=== PATIENT | male | born 1965 | race Caucasian/White ===

== ENCOUNTER 2025-05-05 09:05 | Outpatient (REF) | payer OTHER, SELFPAY ==
[2025-05-05 16:47] LABS: ALT 39 U/L (16-63); AST 23 U/L (15-37); Albumin 3.9 g/dL (3.4-5.0); Alkaline Phosphatase 68 U/L (46-116); Anion Gap 6.4 mmol/L (3-11); BUN 7 mg/dL (7-18); Bilirubin, Total 0.5 mg/dL (0.2-1.0); CO2 31.6 mmol/L (21.0-32.0); CREATININE 0.7 mg/dL (0.70-1.30); Calcium 9.1 mg/dL (8.5-10.1); Chloride 104 mmol/L (98-107); Estimated GFR 106.14 (mL/min/1.73m2); Glucose 88 mg/dL (74-106); LDL CHOLESTEROL 62 mg/dL (<100); Potassium 4.6 mmol/L (3.5-5.1); Sodium 142 mmol/L (136-145); Total Protein 6.7 g/dL (6.4-8.2)
== END 2025-05-05 09:06 | disposition home or self-care (01) ==
LOC: NCHCN 09:05
PROVIDERS: Visit Provider Family Medicine
DX: E78.5 Hyperlipidemia, unspecified (principal); K70.9 Alcoholic liver disease, unspecified
CPT/HCPCS: 80053; 83721

== ENCOUNTER 2025-07-27 08:18 | Outpatient (CLI) | payer OTHER, SELFPAY ==
[2025-07-27 08:45] LABS: ALT 29 U/L (16-63); AST 17 U/L (15-37); Albumin 3.6 g/dL (3.4-5.0); Alkaline Phosphatase 67 U/L (46-116); Anion Gap 7.6 mmol/L (3-11); BUN 7 mg/dL (7-18); Bilirubin, Total 0.4 mg/dL (0.2-1.0); CO2 31.4 mmol/L (21.0-32.0); Calcium 9.1 mg/dL (8.5-10.1); Chloride 104 mmol/L (98-107); Estimated GFR 110.51 (mL/min/1.73m2); Glucose 92 mg/dL (74-106); Potassium 4.2 mmol/L (3.5-5.1); Sodium 143 mmol/L (136-145); Total Protein 7.0 g/dL (6.4-8.2)
[2025-07-27] MEDS: Normal Saline - Diluent 50 ML VIAL IJ (09:05)
[2025-07-27] MEDS: Normal Saline Flush 10 ML SYR IVP (09:05)
[2025-07-27] MEDS: Omnipaque 350 MG/ML 100 ML BTL IJ (09:06)
--- NOTE | 2025-07-27 09:14 | DI.CT_ITS ---
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 TECHNIQUE: Multi planar reconstructions were performed. CONTRAST MATERIAL: Omnipaque 350; 70 cc FINDINGS: CHEST: LUNGS: Again noted are postsurgical/probable post VATS changes in the right lung. There appears to be some mild increasing infiltrate in the medial aspect of the remaining right upper lobe, slightly more so than previous. There are no significant focal findings in the right middle lobe nor in the right lower lobe and is no pleural effusion. No new finding in the right mainstem bronchus. In the opposite-left lung there are no significant focal infiltrates nor nodules and no pleural effusion.. No findings in the right mainstem bronchus. No findings in trachea. MEDIASTINUM: There is no hilar nor mediastinal adenopathy. Visualized thyroid unremarkable. CARDIAC: Heart size is normal. There is no pericardial effusion.Caliber of the ascending thoracic aorta is upper normal. No evidence of dissection. VISUALIZED UPPER ABDOMEN:There are no significant adrenal masses. Cholelithiasis noted. OSSEOUS: No significant osseous lesions.No fractures.. IMPRESSION: 1. Compared to the most recent outside CT scan of 12/28/2024 there is subtle increased infiltrate in the medial aspect of the right upper lobe. This is subtle. No other infiltrates and no pleural effusions. No distinct pulmonary nodules evident. 2. No intrathoracic adenopathy evident. RADIATION DOSE DELIVERED: 136.56mGy.cm Total DLP DATA REPOSITORY: All CT scans at this facility are submitted to the National Radiology Data Registry (NRDR) Dose Index Registry (DIR) with the [employer] ([employer]). RADIATION OPTIMIZATION: All CT scans at this facility use at least one of these dose optimization techniques: automated exposure control; mA and/or kV adjustment per patient size (includes targeted exams where dose is matched to clinical indication); or iterative reconstruction.
== END 2025-07-27 08:38 ==
LOC: DI 08:18
PROVIDERS: PCP Family Medicine; Visit Provider Internal Medicine Medical Oncology
DX: C34.11 Malignant neoplasm of upper lobe, right bronchus or lung (principal)
CPT/HCPCS: 80053; 71260; J3490

== ENCOUNTER 2025-07-29 12:00 | Day surgery (SDC) | payer OTHER, SELFPAY ==
--- NOTE | 2025-07-29 11:05 | W.ANESPRE ---
General Info Date of Service Date Performed: 07/29/25 Height: 5 ft 11 in Weight: 74.843 kg Body Mass Index (BMI): 23.0 Surgical Procedure: Operation Date: 07/29/25 13:05 Proposed Procedure Side Surgeon jose cruz Garcia MD Meds Allergies and Home Medications Allergies Allergy/AdvReac Type Severity Reaction Status Date / Time No Known Allergies Allergy Verified 07/29/25 12:06 Home Medication ?Medication ?Instructions ?Recorded buspirone 15 mg tablet 15 mg PO BID 05/31/25 ezetimibe 10 mg tablet (Zetia) 10 mg PO DAILY 05/31/25 fluoxetine 40 mg capsule 40 mg PO DAILY 05/31/25 gabapentin 300 mg capsule 300 mg PO BID 05/31/25 multivitamin (Daily Multi-Vitamin 1 tab PO DAILY 05/31/25 tablet) omega-3 fatty acids 1,000 mg 1,000 mg PO DAILY 05/31/25 capsule omeprazole 40 mg capsule,delayed 40 mg PO DAILY 05/31/25 release potassium chloride 20 mEq 20 meq PO BID 05/31/25 tablet,extended release (K-Tab) rosuvastatin 40 mg tablet 40 mg PO DAILY 05/31/25 sildenafil 50 mg tablet (Viagra) 50 mg PO DAILY PRN 05/31/25 trazodone 100 mg tablet 100 mg PO QHS PRN 05/31/25 aspirin 81 mg tablet 81 mg PO DAILY 06/02/25 Current Visit Medications: Current Medications Generic Name Dose Route Start Last Admin Trade Name Freq PRN Reason Stop Dose Admin Ringer's Solution 1,000 mls @ 80 mls/hr 07/29/25 06:00 IV 07/29/25 23:59 INFUSION CHRIS IV Miscellaneous Supplies 1 each 07/29/25 06:00 Iv Access IV 07/29/25 23:59 DIRECTED CHRIS Sodium Biphosphate/Sodium Phosphate 133 ml 07/29/25 06:00 Na Phosphate Enema-Adult 133 Ml Btl NC 07/29/25 23:59 DIRECTED PRN Sodium Chloride 0 ml 07/29/25 06:00 Normal Saline Flush 10 Ml Syr IV 07/29/25 23:59 PRN PRN Sodium Chloride 0 ml 07/29/25 06:00 Normal Saline 10 Ml Vial IJ 07/29/25 23:59 DIRECTED PRN Sterile Water 0 ml 07/29/25 06:00 Water,Injection,Sterile 10 Ml Vial IJ 07/29/25 23:59 DIRECTED PRN PFSH Active Problems Active Problems: Problem Status Onset Code Encounter for colonoscopy due to history of adenomatous colonic polyps Acute Z12.11, Z86.0101 GERD (gastroesophageal reflux disease) Chronic K21.9 Fibrosis of lung Acute J84.10 COPD (chronic obstructive pulmonary disease) Chronic J44.9 Medical History Medical History 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 ED (erectile dysfunction) Generalized osteoarthritis BOSSMAN (obstructive sleep apnea) BPH (benign prostatic hyperplasia) Constipation Non-small cell lung cancer chemo and radiation completed 09/21/2021 Chronic insomnia 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, in remission (~2021) Tubulovillous adenoma (~02/2021) Hyperlipidemia Bipolar disorder Carotid artery stenosis Arteriosclerotic vascular disease Surgical History Surgical History Hx of cataract surgery (~11/18/16) History of colonoscopy (~02/16/21) Tobacco Smoking/Tobacco Use Status: Former Tobacco Use Alcohol Alcohol Intake: former Substance Use Substance use: Daily Substance use type: marijuana Details: smokes marijuana daily Vital Signs and Lab Results Vital Signs Most Recent Vital Signs in EMR: Temp Pulse Resp BP Pulse Ox 36.9 C 51 L 14 105/68 97 07/29/25 12:16 07/29/25 12:16 07/29/25 12:16 07/29/25 12:16 07/29/25 12:16 Lab Results Complete Metabolic Panel: Sodium, (136-145) 143 mmol/L 07/27/25, 08:20 Potassium, (3.5-5.1) 4.2 mmol/L 07/27/25, 08:20 Chloride, (98-107) 104 mmol/L 07/27/25, 08:20 Carbon Dioxide, (21.0-32.0) 31.4 mmol/L 07/27/25, 08:20 BUN, (7-18) 7 mg/dL 07/27/25, 08:20 Creatinine, (0.70-1.30) 0.6 mg/dL L 07/27/25, 08:20 Est GFR (CKD-EPI 2020), (mL/min/1.73m2) 110.51 07/27/25, 08:20 Calcium, (8.5-10.1) 9.1 mg/dL 07/27/25, 08:20 Albumin, (3.4-5.0) 3.6 g/dL 07/27/25, 08:20 Glucose, (74-106) 92 mg/dL 07/27/25, 08:20 Liver Function Panel: ALT, (16-63) 29 U/L 07/27/25, 08:20 AST, (15-37) 17 U/L 07/27/25, 08:20 Anesthesia Assessment and Plan Anesthesia History Personal History: No History of Anesthesia Complications Family History: No Family History of Anesthesia Complications Exercise Tolerance Exercise Tolerance: Metabolic Equivalents>4 Cardiac & Pulmonary Exam Cardiac Exam: Normal S1/S2 Heart Sounds Pulmonary Exam: Clear Bilateral Breath Sounds Implantable Cardiac Device Does patient have a Pacemaker or an ICD?: No Airway Exam Known Difficult Airway: No Mallampati Class: 3 Mouth Opening: Normal (> 3cm) Thyromental Distance: Less than 3 cm Neck Range of Motion: Full ROM Neck Circumference: Normal Teeth Condition: Normal Dentition ASA Classification ASA Score: ASA 2 Emergency Case?: No NPO Status NPO Status: NPO Clears >2 hours, Solids >8 hours Anesthesia Plan Resuscitation Status: Full Code Anesthesia Technique: General Anesthesia Airway Planned: Natural Airway Monitors Used: Standard Monitors Preoperative Comments:: 60 yo for colo. Sig PMHx: carotid artery stenosis (denies), COPD (denies any inhaler use, breathing feels good today), BOSSMAN, lung CA, GERD (omeprazole, well controlled), bipolar. former smoker. daily cannabis.
[2025-07-29 12:16] VITALS: BP 105/68; PULSE 51; RESP 14; TEMP 36.9; O2SAT 97
[2025-07-29] MEDS: Lactated Ringers 1,000 ML 80 ML IV (12:31)
[2025-07-29 12:37] VITALS: BMI 23.0
--- NOTE | 2025-07-29 12:49 | W.PM.HP.N ---
Date of service: 07/29/25 Time of Service: 12:49 Assessment and Plan Assessment and plan (1) Encounter for colonoscopy due to history of adenomatous colonic polyps: Status: Acute Assessment and plan: history of tubulovillous adenoma in 2020, due now for reeval of colon. proceed w colonoscopy. procedure discussed, consent form signed. History of Present Illness Narrative: This is a 59-year-old male referred to see me for colonoscopy. He has a history of tubulovillous adenoma in 2020 reported to us. I do not have those records to review. His primary care physician referred him to get caught up on colonoscopy as he is now due. The patient reportedly had a Cologuard in the past that was positive, followed by colonoscopy that revealed the polyp. The polyp was removed and the patient states that he was told he did not have cancer. He denies any obstructive symptoms presently. Aside from occasional constipation problems he denies any change in his stool habits. No blood in the stool. No abdominal pain on a regular basis. There is no personal history of colon or rectal cancer. There is no personal history of Crohn's disease or ulcerative colitis. His and his sister both within the last few months. Const: All systems are reviewed & are unremarkable except as noted in HPI and below Exam Psych Other: awake, NAD eomi, MMM midline trachea, neck is symmetric PULM: normal resp effort, equal chest rise with respiration, no wheezing audible CARDIAC: normal PMI, no jvd, regular rate, normal perfusion abdomen is nondistended. 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 ED (erectile dysfunction) Generalized osteoarthritis BOSSMAN (obstructive sleep apnea) BPH (benign prostatic hyperplasia) Constipation Non-small cell lung cancer chemo and radiation completed 09/21/2021 Chronic insomnia 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 Housing: house Current gender identity: male Do you feel safe at home: Yes Meds Allergies and Home Medications Allergies Allergy/AdvReac Type Severity Reaction Status Date / Time No Known Allergies Allergy Verified 07/29/25 12:06 Home Medications ?Medication ?Instructions ?Recorded ?Confirmed ?Type buspirone 15 mg tablet 15 mg PO BID 05/31/25 07/29/25 History ezetimibe 10 mg tablet (Zetia) 10 mg PO DAILY 05/31/25 07/29/25 History fluoxetine 40 mg capsule 40 mg PO DAILY 05/31/25 07/29/25 History gabapentin 300 mg capsule 300 mg PO BID 05/31/25 07/29/25 History multivitamin (Daily Multi-Vitamin 1 tab PO DAILY 05/31/25 07/29/25 History tablet) omega-3 fatty acids 1,000 mg 1,000 mg PO DAILY 05/31/25 07/29/25 History capsule omeprazole 40 mg capsule,delayed 40 mg PO DAILY 05/31/25 07/29/25 History release potassium chloride 20 mEq 20 meq PO BID 05/31/25 07/29/25 History tablet,extended release (K-Tab) rosuvastatin 40 mg tablet 40 mg PO DAILY 05/31/25 07/29/25 History sildenafil 50 mg tablet (Viagra) 50 mg PO DAILY PRN 05/31/25 07/27/25 History trazodone 100 mg tablet 100 mg PO QHS PRN 05/31/25 07/29/25 History aspirin 81 mg tablet 81 mg PO DAILY 06/02/25 07/29/25 History Results Last Vital Signs Temp 98.4 F 07/29/25 12:16 Pulse 51 L 07/29/25 12:16 Resp 14 07/29/25 12:16 BP 105/68 07/29/25 12:16 Pulse Ox 97 07/29/25 12:16 Time Spent Time spent with Patient: <40 minutes Time was spent: preparing to see the patient(eg.review tests), referring, communicating with other health morning caregiver and counseling the patient
--- NOTE | 2025-07-29 12:50 | W.PM.DSUDISC ---
Date of service: 07/29/25 Discharge Plan Disposition Patient Disposition: Home Condition: Stable Discharge Details Reason For Visit: colonoscopy procedure Attending Provider: Bertha Garcia Primary Care Provider: Mayur Quiles Home Meds and New Rx's Prescriptions: Continued multivitamin [Daily Multi-Vitamin] Tablet 1 tab PO DAILY fluoxetine 40 mg capsule 40 mg PO DAILY omega-3 fatty acids 1,000 mg capsule 1,000 mg PO DAILY sildenafil [Viagra] 50 mg tablet 50 mg PO DAILY PRN Rx Instructions: administer 30 minutes to 4 hours before activity omeprazole 40 mg capsule,delayed release(DR/EC) 40 mg PO DAILY trazodone 100 mg tablet 100 mg PO QHS PRN gabapentin 300 mg capsule 300 mg PO BID buspirone 15 mg tablet 15 mg PO BID ezetimibe [Zetia] 10 mg tablet 10 mg PO DAILY rosuvastatin 40 mg tablet 40 mg PO DAILY potassium chloride [K-Tab] 20 mEq tablet extended release 20 meq PO BID aspirin 81 mg tablet 81 mg PO DAILY Discharge Instructions Additional Instructions: Your colonoscopy prep unfortunately was not adequate. This means I couldnt see well enough to remove polyps from your colon today. I had to cut the procedure short for your safety becuase I couldnt see my way through. I recommend we try a 2 day prep and reschedule. I will have the office reach out to you with new date and instructions. Thank you! Activity:: Activity as Tolerated Diet:: As Tolerated Discharge Orders Discharge Orders: Discharge Order (Routine); Ordered 07/29/25 Ordered By: Bertha Garcia DS: Diagnosis Discharge Diagnosis (1) Encounter for colonoscopy due to history of adenomatous colonic polyps: Status: Acute Asessment and Plan: prior tubulovillous adenoma in 2020.
--- NOTE | 2025-07-29 12:59 | W.COLOREPORT ---
Date of service: 07/29/25 Time of Service: 13:23 Colonoscopy Report Pre-op diagnosis general: Prior tubulovillous adenoma of colon Post-op diagnosis procedure note: same Procedure: Incomplete colonoscopy - endoscopy to level of sigmoid colon but not beyond due to poor prep. Surgeon: Bertha Garcia Anesthesia Type: General:No Airway Estimated blood loss (mL): 0 Complications: None Disposition: same day Prep: Miralax/Dulcolax Procedure Description: Informed consent was obtained and the patient was taken to the procedure area. The patient was placed in left lateral decubitus position on the procedure table. Timeout was performed. Anesthesia was induced. A lubricated colonoscope was inserted through the anus and passed to the sigmoid colon. A large amount of residual opaque and solid stool was encountered. Attempts to suction and irrigate the stool away were not successful enough and the procedure was aborted. Assessment and plan; History of tubulovillous adenoma requiring colonoscopy Poor prep, unable to complete exam. Reschedule patient with a two day prep plan. Office will contact to schedule.
[2025-07-29 13:27] VITALS: BP 91/60; PULSE 59; RESP 14; TEMP 36.4; O2SAT 97
--- NOTE | 2025-07-29 13:34 | W.ANESPOSTOP ---
Postoperative Evaluation Date, Time and Location Date Performed: 07/29/25 Time Performed: 13:35 Patient Location: Day Surgery Unit Vital Signs Most Recent Imported Vital Signs: Most Recent Vital Signs Temp Pulse Resp BP Pulse Ox 36.4 C L 59 L 14 91/60 L 97 07/29/25 13:27 07/29/25 13:27 07/29/25 13:27 07/29/25 13:27 07/29/25 13:27 Pain Score Most Recent Pain Score: Most Recent Pain Score Pain Level 0 07/29/25 13:27 Assessment Mental Status: Awake (Alert & Oriented to Patient Baseline) Airway and Respiratory Function: Patent airway with normal (patient baseline) respiratory exam Cardiovascular Function: Hemodynamically Stable Hydration Status: Adequately Hydrated Nausea & Vomiting: No Nausea or Vomiting Pain: Pt. Denies Any Pain Peripheral Nerve Block: Patient did not receive a nerve block
[2025-07-29 13:57] VITALS: BP 110/80; PULSE 62; RESP 14; TEMP 36.7; O2SAT 95
== END 2025-07-29 14:01 | disposition home or self-care (01) ==
PROVIDERS: PCP Family Medicine; Visit Provider Surgery
PROC: 0DJD8ZZ Inspection of Lower Intestinal Tract, Via Natural or Artificial Opening Endoscopic (ICD-10-PCS; CPT 45378; principal; 2025-07-29 13:00)
DX: Z12.11 Encounter for screening for malignant neoplasm of colon (principal); Z86.0101 Personal history of adenomatous and serrated colon polyps; J44.9 Chronic obstructive pulmonary disease, unspecified; Z87.891 Personal history of nicotine dependence; K21.9 Gastro-esophageal reflux disease without esophagitis
CPT/HCPCS: 45378; J1805; J2704

== ENCOUNTER 2025-09-06 10:37 | Day surgery (SDC) | payer OTHER, SELFPAY ==
[2025-09-06 11:26] VITALS: BP 97/79; PULSE 67; RESP 16; TEMP 36.4; O2SAT 95
[2025-09-06] MEDS: Lactated Ringers 1,000 ML 80 ML IV ×2 (11:41→14:44)
--- NOTE | 2025-09-06 13:16 | W.ANESPRE ---
General Info Date of Service Date Performed: 09/06/25 Height: 5 ft 11 in Weight: 70.3 kg Body Mass Index (BMI): 21.6 Surgical Procedure: Operation Date: 09/06/25 11:35 Proposed Procedure Side Surgeon jose cruz Garcia MD Meds Allergies and Home Medications Allergies Allergy/AdvReac Type Severity Reaction Status Date / Time No Known Allergies Allergy Verified 09/06/25 11:24 Home Medication ?Medication ?Instructions ?Recorded buspirone 15 mg tablet 15 mg PO BID 05/31/25 ezetimibe 10 mg tablet (Zetia) 10 mg PO DAILY 05/31/25 fluoxetine 40 mg capsule 40 mg PO DAILY 05/31/25 gabapentin 300 mg capsule 300 mg PO BID 05/31/25 multivitamin (Daily Multi-Vitamin 1 tab PO DAILY 05/31/25 tablet) omega-3 fatty acids 1,000 mg 1,000 mg PO DAILY 05/31/25 capsule omeprazole 40 mg capsule,delayed 40 mg PO DAILY 05/31/25 release potassium chloride 20 mEq 20 meq PO BID 05/31/25 tablet,extended release (K-Tab) rosuvastatin 40 mg tablet 40 mg PO DAILY 05/31/25 sildenafil 50 mg tablet (Viagra) 50 mg PO DAILY PRN 05/31/25 trazodone 100 mg tablet 100 mg PO QHS PRN 05/31/25 aspirin 81 mg tablet 81 mg PO DAILY 06/02/25 Current Visit Medications: Current Medications Generic Name Dose Route Start Last Admin Trade Name Freq PRN Reason Stop Dose Admin Ringer's Solution 1,000 mls @ 80 mls/hr 09/06/25 06:00 09/06/25 11:41 IV 10/03/25 23:59 80 mls/hr INFUSION CHRIS Administration IV Miscellaneous Supplies 1 each 09/06/25 06:00 Iv Access IV 10/03/25 23:59 DIRECTED CHRIS Sodium Biphosphate/Sodium Phosphate 133 ml 09/06/25 06:00 Na Phosphate Enema-Adult 133 Ml Btl TN 10/03/25 23:59 DIRECTED PRN Sodium Chloride 0 ml 09/06/25 06:00 Normal Saline Flush 10 Ml Syr IV 10/03/25 23:59 PRN PRN Sodium Chloride 0 ml 09/06/25 06:00 Normal Saline 10 Ml Vial IJ 10/03/25 23:59 DIRECTED PRN Sterile Water 0 ml 09/06/25 06:00 Water,Injection,Sterile 10 Ml Vial IJ 10/03/25 23:59 DIRECTED PRN PFSH Active Problems Active Problems: Problem Status Onset Code Encounter for colonoscopy due to history of adenomatous colonic polyps Acute Z12.11, Z86.0101 GERD (gastroesophageal reflux disease) Chronic K21.9 Fibrosis of lung Acute J84.10 COPD (chronic obstructive pulmonary disease) Chronic J44.9 Medical History Medical History 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 ED (erectile dysfunction) Generalized osteoarthritis BOSSMAN (obstructive sleep apnea) BPH (benign prostatic hyperplasia) Constipation Non-small cell lung cancer chemo and radiation completed 09/21/2021 Chronic insomnia 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, in remission (~2021) Tubulovillous adenoma (~02/2021) Hyperlipidemia Bipolar disorder Carotid artery stenosis Arteriosclerotic vascular disease Surgical History Surgical History Hx of cataract surgery (~11/18/16) History of colonoscopy (~02/16/21) Tobacco Smoking/Tobacco Use Status: Former Tobacco Use Passive smoking exposure: Yes Alcohol Alcohol Intake: former Substance Use Substance use: Daily Substance use type: marijuana Details: Last used marijuana smoked evening of 09/05/25 Vital Signs and Lab Results Vital Signs Most Recent Vital Signs in EMR: Most Recent Vital Signs Temp Pulse Resp BP Pulse Ox 36.4 C L 67 16 97/79 L 95 09/06/25 11:26 09/06/25 11:26 09/06/25 11:26 09/06/25 11:26 09/06/25 11:26 Anesthesia Assessment and Plan Anesthesia History Personal History: No History of Anesthesia Complications Family History: No Family History of Anesthesia Complications Exercise Tolerance Exercise Tolerance: Metabolic Equivalents>4 Pertinent Negatives Pertinent Negatives: No Symptoms of GERD Cardiac & Pulmonary Exam Cardiac Exam: Normal S1/S2 Heart Sounds Pulmonary Exam: Clear Bilateral Breath Sounds Implantable Cardiac Device Does patient have a Pacemaker or an ICD?: No Airway Exam Known Difficult Airway: No Mallampati Class: 3 Mouth Opening: Normal (> 3cm) Thyromental Distance: Less than 3 cm Neck Range of Motion: Full ROM Neck Circumference: Normal Teeth Condition: Normal Dentition ASA Classification ASA Score: ASA 2 Emergency Case?: No NPO Status NPO Status: NPO Clears >2 hours, Solids >8 hours Anesthesia Plan Resuscitation Status: Full Code Anesthesia Technique: General Anesthesia Airway Planned: Natural Airway Monitors Used: Standard Monitors Preoperative Comments:: 60 yo for colo. Sig PMHx: carotid artery stenosis (denies), COPD (denies any inhaler use, breathing feels good today), BOSSMAN, lung CA, GERD (omeprazole, well controlled), bipolar. former smoker. daily cannabis.
--- NOTE | 2025-09-06 13:30 | W.PM.HP.N ---
Date of service: 07/29/25 Time of Service: 12:49 Assessment and Plan Assessment and plan (1) Encounter for colonoscopy due to history of adenomatous colonic polyps: Status: Acute Assessment and plan: history of tubulovillous adenoma in 2020, due now for reeval of colon. proceed w colonoscopy. procedure discussed, consent form signed. History of Present Illness Narrative: This is a 59-year-old male referred to see me for colonoscopy. His last scope procedure had poor prep, so he returns today after a 2 day prep. He has a history of tubulovillous adenoma in 2020 reported to us. I do not have those records to review. His primary care physician referred him to get caught up on colonoscopy as he is now due. The patient reportedly had a Cologuard in the past that was positive, followed by colonoscopy that revealed the polyp. The polyp was removed and the patient states that he was told he did not have cancer. He denies any obstructive symptoms presently. Aside from occasional constipation problems he denies any change in his stool habits. No blood in the stool. No abdominal pain on a regular basis. There is no personal history of colon or rectal cancer. There is no personal history of Crohn's disease or ulcerative colitis. His and his sister both within the last few months. Const: All systems are reviewed & are unremarkable except as noted in HPI and below Exam Psych Other: awake, NAD eomi, MMM midline trachea, neck is symmetric PULM: normal resp effort, equal chest rise with respiration, no wheezing audible CARDIAC: normal PMI, no jvd, regular rate, normal perfusion abdomen is nondistended. 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 ED (erectile dysfunction) Generalized osteoarthritis BOSSMAN (obstructive sleep apnea) BPH (benign prostatic hyperplasia) Constipation Non-small cell lung cancer chemo and radiation completed 09/21/2021 Chronic insomnia 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 Meds Allergies and Home Medications Allergies Allergy/AdvReac Type Severity Reaction Status Date / Time No Known Allergies Allergy Verified 09/06/25 11:24 Home Medications ?Medication ?Instructions ?Recorded ?Confirmed ?Type buspirone 15 mg tablet 15 mg PO BID 05/31/25 09/06/25 History ezetimibe 10 mg tablet (Zetia) 10 mg PO DAILY 05/31/25 09/06/25 History fluoxetine 40 mg capsule 40 mg PO DAILY 05/31/25 09/06/25 History gabapentin 300 mg capsule 300 mg PO BID 05/31/25 09/06/25 History multivitamin (Daily Multi-Vitamin 1 tab PO DAILY 05/31/25 09/02/25 History tablet) omega-3 fatty acids 1,000 mg 1,000 mg PO DAILY 05/31/25 09/02/25 History capsule omeprazole 40 mg capsule,delayed 40 mg PO DAILY 05/31/25 09/06/25 History release potassium chloride 20 mEq 20 meq PO BID 05/31/25 09/06/25 History tablet,extended release (K-Tab) rosuvastatin 40 mg tablet 40 mg PO DAILY 05/31/25 09/06/25 History sildenafil 50 mg tablet (Viagra) 50 mg PO DAILY PRN 05/31/25 09/02/25 History trazodone 100 mg tablet 100 mg PO QHS PRN 05/31/25 09/02/25 History aspirin 81 mg tablet 81 mg PO DAILY 06/02/25 09/02/25 History Results Last Vital Signs Temp 97.5 F L 09/06/25 11:26 Pulse 67 09/06/25 11:26 Resp 16 09/06/25 11:26 BP 97/79 L 09/06/25 11:26 Pulse Ox 95 09/06/25 11:26 Time Spent Time spent with Patient: <40 minutes Time was spent: preparing to see the patient(eg.review tests), indepentently interpreting results and counseling the patient
[2025-09-06 13:41] VITALS: BMI 21.6
--- NOTE | 2025-09-06 14:39 | BOWEL_PTH ---
PATIENT: Mert Medeiros LOC: [facility] U#:[id number] AGE/SX: 60/M ROOM: RE09/06/[address]: Bertha Garcia MD : [id number] BED: DIS: 09/06/2025 SPEC #: [id number] RECD: 09/06/25 18:22 STATUS: VANDANA REQ #: [id number] DENNIS: 09/06/25 14:[address]: Bertha Garcia DEPT: Surgical Specimen RECD BY: Angela Nieves ENTERED: 09/06/25 18:23 SP TYPE: Bowel OTHR DR: Mayur Quiles Tissues: 1 - BIOPSY BOWEL Procedures: GROSS AND MICRO LEVEL 4 Comments: [id number]
--- NOTE | 2025-09-06 14:56 | W.PM.DSUDISC ---
Date of service: 09/06/25 Discharge Plan Disposition Patient Disposition: Home Condition: Stable Discharge Details Attending Provider: Bertha Garcia Primary Care Provider: Mayur Quiles Home Meds and New Rx's Prescriptions: Continued multivitamin [Daily Multi-Vitamin] Tablet 1 tab PO DAILY fluoxetine 40 mg capsule 40 mg PO DAILY omega-3 fatty acids 1,000 mg capsule 1,000 mg PO DAILY sildenafil [Viagra] 50 mg tablet 50 mg PO DAILY PRN Rx Instructions: administer 30 minutes to 4 hours before activity omeprazole 40 mg capsule,delayed release(DR/EC) 40 mg PO DAILY trazodone 100 mg tablet 100 mg PO QHS PRN gabapentin 300 mg capsule 300 mg PO BID buspirone 15 mg tablet 15 mg PO BID ezetimibe [Zetia] 10 mg tablet 10 mg PO DAILY rosuvastatin 40 mg tablet 40 mg PO DAILY potassium chloride [K-Tab] 20 mEq tablet extended release 20 meq PO BID aspirin 81 mg tablet 81 mg PO DAILY Discharge Instructions Additional Instructions: One area of polyp regrowth in the right side of the colon treated today. All polyp seen was removed. I recommend another colonoscopy in one year for us to check for regrowth again, and scan the parts of the colon that were not seen well today. Prep was okay, not great, not terrible. Come see me in office in 4 weeks to discuss your polyps and colon health. Activity:: Activity as Tolerated Shower/Bathe:: 24 hours Diet:: As Tolerated Discharge Orders Discharge Orders: Discharge Order (Routine); Ordered 09/06/25 Ordered By: Bertha Garcia DS: Diagnosis Discharge Diagnosis (1) Encounter for colonoscopy due to history of adenomatous colonic polyps: Status: Acute (2) Polyp of ascending colon: Status: Acute
[2025-09-06 15:00] VITALS: BP 108/67; PULSE 59; RESP 18; TEMP 36.5; O2SAT 97
--- NOTE | 2025-09-06 15:02 | W.COLOREPORT ---
Date of service: 09/06/25 Time of Service: 15:02 Colonoscopy Report Pre-op diagnosis general: History of tubulovillous adenoma Post-op diagnosis procedure note: same (multiple ascending colon polyps at site of prior tattoo ) Procedure: Colonoscopy with hot snare polypectomy and mucosal closure with endoclip Surgeon: Bertha Garcia Anesthesia Type: General:No Airway Estimated blood loss (mL): 2 Pathology: other (multiple ascending colon polyps sent as one specimen) Complications: None Prep: Miralax/Dulcolax (fair prep quality) Procedure Description: Informed consent was obtained and the patient was taken to the procedure area. The patient was placed in left lateral decubitus position on the procedure table. Timeout was performed. Anesthesia was induced. A lubricated colonoscope was inserted through the anus and passed to the cecum. The cecum was identified by the ileocecal valve and the appendiceal orifice. The scope was then slowly withdrawn and the colonic and rectal mucosa examined. Ascending colon with an area of polyp growth at the proximal border of prior tattoo. Polyp growth is lobulated, adenomatous swirl pattern surface, measures approximately 25mm in size. Hot snare used for piecemeal removal of polyp growths, removal is complete. retrieval with polyp trap. No other areas of polyp seen. Transverse colon and splenic flexure not well visualized due to insufficient prep in this area. No diverticulosis was seen. The scope was retroflexed in the anorectal junction examined. Uncomplicated internal hemorrhoids present. Assessment and plan: Polyp regrowth adjacent to prior tattoo site. Follow up 10/06/2025 at 1:30pm to review pathology and determine next steps. recommend next colonoscopy in 1 year minimum due to insufficient prep.
--- NOTE | 2025-09-06 15:08 | W.ANESPOSTOP ---
Postoperative Evaluation Date, Time and Location Date Performed: 09/06/25 Time Performed: 15:08 Patient Location: [facility] Unit Vital Signs Most Recent Imported Vital Signs: Most Recent Vital Signs Temp Pulse Resp BP Pulse Ox 36.4 C L 67 16 97/79 L 95 09/06/25 11:26 09/06/25 11:26 09/06/25 11:26 09/06/25 11:26 09/06/25 11:26 Pain Score Most Recent Pain Score: Most Recent Pain Score Pain Level 0 09/06/25 11:26 Assessment Mental Status: Awake (Alert & Oriented to Patient Baseline) Airway and Respiratory Function: Patent airway with normal (patient baseline) respiratory exam Cardiovascular Function: Hemodynamically Stable Hydration Status: Adequately Hydrated Nausea & Vomiting: No Nausea or Vomiting Pain: Pt. Denies Any Pain Peripheral Nerve Block: Patient did not receive a nerve block
[2025-09-06 15:27] VITALS: BP 111/80; PULSE 63; RESP 16; TEMP 36.5; O2SAT 97
== END 2025-09-06 15:46 | disposition home or self-care (01) ==
PROVIDERS: PCP Family Medicine; Visit Provider Surgery
PROC: 0DJD8ZZ Inspection of Lower Intestinal Tract, Via Natural or Artificial Opening Endoscopic (ICD-10-PCS; CPT 45378; principal; 2025-09-06 11:30)
DX: Z12.11 Encounter for screening for malignant neoplasm of colon (principal); D12.2 Benign neoplasm of ascending colon; J44.9 Chronic obstructive pulmonary disease, unspecified; Z87.891 Personal history of nicotine dependence
CPT/HCPCS: 45385; 88305; J2704

== ENCOUNTER 2025-09-16 18:29 | Emergency (ER) | payer OTHER, SELFPAY ==
[2025-09-16 18:34] VITALS: BP 126/83; PULSE 68; RESP 20; TEMP 37.1; O2SAT 92
[2025-09-16 18:36] VITALS: BP 126/83; PULSE 68; RESP 20; TEMP 37.1; O2SAT 92
--- NOTE | 2025-09-16 18:45 | W.ED.GENAD ---
Discharge Plan Disposition Patient Disposition: Home Condition: Stable Discharge Details Clinical Impression: Dog bite of left hand Primary Care Provider: Mayur Quiles ED Provider: Dustin Martinez Home Meds and New Rx's Prescriptions: New amoxicillin-pot clavulanate 875-125 mg tablet 1 tab PO BID Qty: 14 0RF Continued multivitamin [Daily Multi-Vitamin] Tablet 1 tab PO DAILY fluoxetine 40 mg capsule 40 mg PO DAILY omega-3 fatty acids 1,000 mg capsule 1,000 mg PO DAILY sildenafil [Viagra] 50 mg tablet 50 mg PO DAILY PRN Rx Instructions: administer 30 minutes to 4 hours before activity omeprazole 40 mg capsule,delayed release(DR/EC) 40 mg PO DAILY trazodone 100 mg tablet 100 mg PO QHS PRN gabapentin 300 mg capsule 300 mg PO BID buspirone 15 mg tablet 15 mg PO BID ezetimibe [Zetia] 10 mg tablet 10 mg PO DAILY rosuvastatin 40 mg tablet 40 mg PO DAILY potassium chloride [K-Tab] 20 mEq tablet extended release 20 meq PO BID aspirin 81 mg tablet 81 mg PO DAILY Discharge Instructions Additional Instructions: Apply bacitracin to the wounds for the next several days twice a day. Keeping your hand elevated when sitting or lying down can help with swelling. If you have signs of infection such as high fevers, or redness spreading down the arm return to the emergency department for reevaluation. HPI General Mode of arrival: ambulatory. Date/Time Provider Initiated Documentation: 09/16/25 18:33. Limitations to Documentation: no limitations. Information obtained by: patient. History of Present Illness 60 year old M presents to the emergency department with the chief complaint of dog bite left hand, described as mild, Quality is described as aching, and is localized to the left and upper extremity. and it has been constant. No relieving factors improve symptom(s), No exacerbating factors reported . Patient notes no other symptoms.. Related Data Home Medications Medication Instructions Recorded Confirmed buspirone 15 mg tablet 15 mg PO BID 05/31/25 09/16/25 ezetimibe 10 mg tablet (Zetia) 10 mg PO DAILY 05/31/25 09/16/25 fluoxetine 40 mg capsule 40 mg PO DAILY 05/31/25 09/16/25 gabapentin 300 mg capsule 300 mg PO BID 05/31/25 09/16/25 multivitamin (Daily Multi-Vitamin 1 tab PO DAILY 05/31/25 09/16/25 tablet) omega-3 fatty acids 1,000 mg 1,000 mg PO DAILY 05/31/25 09/16/25 capsule omeprazole 40 mg capsule,delayed 40 mg PO DAILY 05/31/25 09/16/25 release potassium chloride 20 mEq 20 meq PO BID 05/31/25 09/16/25 tablet,extended release (K-Tab) rosuvastatin 40 mg tablet 40 mg PO DAILY 05/31/25 09/16/25 sildenafil 50 mg tablet (Viagra) 50 mg PO DAILY PRN 05/31/25 09/16/25 trazodone 100 mg tablet 100 mg PO QHS PRN 05/31/25 09/16/25 aspirin 81 mg tablet 81 mg PO DAILY 06/02/25 09/16/25 amoxicillin 875 mg-potassium 1 tab PO BID #14 tabs 09/16/25 clavulanate 125 mg tablet Previous Rx's Medication Instructions Recorded amoxicillin 875 mg-potassium 1 tab PO BID #14 tabs 09/16/25 clavulanate 125 mg tablet Allergies Allergy/AdvReac Type Severity Reaction Status Date / Time No Known Allergies Allergy Verified 09/16/25 18:37 General Stated Complaint: AnimalBite RACHAEL: 4 Review of Systems All systems reviewed & are unremarkable except as noted in HPI and below Constitutional Constitutional: Denies chills and Denies fever(s) Cardiovascular Cardiovascular: Denies chest pain and Denies dyspnea Respiratory Respiratory: Denies cough and Denies dyspnea Gastrointestinal Gastrointestinal: Denies abdominal pain, Denies nausea and Denies vomiting Psychiatric Psychiatric: Denies depression Exam Const General: no acute distress Orientation: alert [facility] Head: normal to inspection Ears: external ears normal General nose exam: external nose normal Mouth: moist mucous membranes Eyes General: appearance normal, both eyes and all related structures Neck Neck: normal visual inspection Resp Effort & Inspection: normal respiratory effort and able to speak in complete sentences Cardio Rate: regular rate Skin General skin exam: no ecchymosis and no erythema Neuro General: patient alert and patient oriented x3 Extrem General: full ROM and capillary refill normal Psych Mental Status: mental status grossly normal Course Vital Signs Vital signs: Vital Signs Temperature 37.1 C 09/16/25 18:34 Pulse 68 09/16/25 18:34 Respiratory Rate 20 09/16/25 18:34 Blood Pressure 126/83 09/16/25 18:34 Pulse Oximetry 92 09/16/25 18:34 Temperature 37.1 C 09/16/25 18:36 Pulse 68 09/16/25 18:36 Respiratory Rate 20 09/16/25 18:36 Blood Pressure 126/83 09/16/25 18:36 Blood Pressure Position Sitting 09/16/25 18:36 Pulse Oximetry 92 09/16/25 18:36 Oxygen Delivery Method Room Air 09/16/25 18:36 Oxygen Flow Rate 0 09/16/25 18:36 Medical Decision Making 60-year-old male Comes in after his dog bit his left hand. He did not fall or sustain other injuries. He cleaned the wound with hydroperoxide and ran it under a faucet. He has a small puncture wound on the left posterior proximal thumb and anterior thumb. He has full range of motion of the thumb and sensation is intact. He has no bony tenderness. Wounds are superficial. Given lack of bony tenderness and superficial the wounds that I do not fracture do not feel x-rays are indicated. I am going to place him on Augmentin. Patient states the dog is up-to-date on rabies vaccines. 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 ED (erectile dysfunction) Generalized osteoarthritis BOSSMAN (obstructive sleep apnea) BPH (benign prostatic hyperplasia) Constipation Non-small cell lung cancer chemo and radiation completed 09/21/2021 Chronic insomnia 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
[2025-09-16] MEDS: Bacitracin 30 GM TUBE TP (19:03)
[2025-09-16] MEDS: Tetanus & Diphtheria Tox,ADULT 0.5 ML VIAL IM (19:04)
[2025-09-16] MEDS: Amox. 875/Clav. 125, 2 TABS/BTL 1 TAB PO (19:05)
== END 2025-09-16 19:13 | disposition home or self-care (01) ==
PROVIDERS: Emergency Provider Emergency Medicine; PCP Family Medicine
DX: S61.452A Open bite of left hand, initial encounter (principal); W54.0XXA Bitten by dog, initial encounter; Z23 Encounter for immunization
CPT/HCPCS: 90471; 90714; 99284; 99283